=== PATIENT | female | born 1995 | race Two or more races ===

== ENCOUNTER 2021-01-27 10:03 | Inpatient (IN) | payer OTHER ==
[~2021-01-27] VITALS: Ht 168.9 cm; Wt 83.5 kg
[2021-01-27] MEDS ORDERED: PRENATAL TABLE1 EAC1 PO (10:21)
[2021-01-27] MEDS ORDERED: PEPCID AC20 MG PO (10:21)
== END 2021-01-29 14:26 | disposition home or self-care (01) | DRG 807 ==
LOC: OB/GYN 10:03 → LDR 10:03 → OB/GYN 18:10
PROVIDERS: ADMIT Obstetrics & Gynecology Obstetrics; ATTEND Obstetrics & Gynecology Obstetrics
PROC: 10E0XZZ Delivery of Products of Conception, External Approach (ICD-10-PCS; principal; 2021-01-27)
PROC: 10907ZC Drainage of Amniotic Fluid, Therapeutic from Products of Conception, Via Natural or Artificial Opening (ICD-10-PCS; 2021-01-27)
PROC: 4A1HXFZ Monitoring of Products of Conception, Cardiac Rhythm, External Approach (ICD-10-PCS; 2021-01-27)
DX: O80 Encounter for full-term uncomplicated delivery (principal); Z37.0 Single live birth; Z3A.37 37 weeks gestation of pregnancy

== ENCOUNTER 2023-08-14 10:04 | Outpatient (CLI) | payer OTHER ==
[~2023-08-14 10:04] MED LIST: PEPCID AC20 MG PO; PRENATAL TABLE1 EAC1 PO
== END 2023-08-14 10:05 | disposition home or self-care (01) ==
LOC: PRENATAL 10:04
PROVIDERS: ATTEND Obstetrics & Gynecology Maternal & Fetal Medicine
DX: O35.9XX0 Maternal care for (suspected) fetal abnormality and damage, unspecified, not applicable or unspecified (principal); O35.3XX0 Maternal care for (suspected) damage to fetus from viral disease in mother, not applicable or unspecified; O44.00 Complete placenta previa NOS or without hemorrhage, unspecified trimester; Z3A.27 27 weeks gestation of pregnancy

== ENCOUNTER 2023-10-19 17:40 | Inpatient (IN) | payer OTHER ==
[~2023-10-19] VITALS: Ht 170.2 cm; Wt 85.3 kg
[2023-10-19 16:46] VITALS: BP 122/72
[2023-10-19] MEDS ORDERED: RINGERS SOLUTION,LACTATED 1,000 ML IV SCH (18:00)
[2023-10-19] MEDS ORDERED: BETAMETHASONE ACETATE,SOD PHOS 30 MG/5 ML ML ONE (18:00)
[2023-10-19] MEDS ORDERED: CEFAZOLIN SODIUM 1,000 MG VIAL IV SCH (18:00)
[2023-10-19] MEDS ORDERED: CEFAZOLIN SODIUM 1,000 MG VIAL ONE (18:02)
[2023-10-19] MEDS ORDERED: BETAMETHASONE ACETATE,SOD PHOS 30 MG/5 ML ML IU NR (18:15)
[2023-10-19 18:53] LABS: HEMATOCRIT 28.6 % (36.0-45.00); HEMOGLOBIN 9.8 g/dL (12.0-15.00); MEAN CELL VOLUME 91.8 fL (80.00-100.00); MEAN CORPUSCULAR HEMOGLOBIN 31.3 pg (27.00-32.0); MEAN CORPUSCULAR HGB CONC 34.1 g/dl (32.0-36.0); PLATELET COUNT 232 K/uL (150-450); RED BLOOD COUNT 3.12 M/uL (4.00-6.00); RED CELL DISTRIBUTION WIDTH 14.1 % (11.5-14.5)
[2023-10-19 18:54] LABS: PH,URINE 6.5 (5.0-8.0); URINE APPEARANCE Cloudy; URINE BILIRRUBIN Negative (NEGATIVE); URINE BLOOD Negative; URINE COLOR Yellow; URINE GLUCOSE Negative (NEGATIVE); URINE KETONE Negative (NEGATIVE); URINE LEUKOCYTE Moderate; URINE NITRATE Negative; URINE PROTEIN 30 (NEGATIVE); URINE UROBILINOGEN 0.2 E.U./dl
[2023-10-19 18:58] LABS: URINE BACTERIA 3321.1 uL (0.0-1933); URINE EPITHELIAL CELLS 108.8 uL (0.0-38.8); URINE RBC 3.2 uL (0.0-20.8); URINE WBC 187.3 uL (0.0-23.2)
[2023-10-19 19:12] LABS: INR 0.95; PARTIAL THROMBOPLASTIN TIME 30.5 SECONDS (22.0-34.0); PROTHROMBIN TIME 10.4 SECONDS (9.0-11.5)
[2023-10-19] MEDS ORDERED: SOD FERRIC GLUC COMPLX/SUCROSE 62.5 MG/5 ML AMPUL IV NR (19:15)
[2023-10-19 19:19] LABS: URINE CAST 0.15 uL (0.0-1.40); URINE YEAST FEW /hpf
[2023-10-19 19:37] VITALS: BP 106/56
[2023-10-19] MEDS ORDERED: SOD FERRIC GLUC COMPLX/SUCROSE 62.5 MG/5 ML AMPUL IV ONE (20:13)
[2023-10-19 23:30] VITALS: BP 115/65
[2023-10-20 03:17] VITALS: BP 121/66
[2023-10-20 06:30] VITALS: BP 100/54; O2SAT 97
[2023-10-20 11:58] VITALS: BP 115/60
[2023-10-20] MEDS ORDERED: FAMOTIDINE/PF 20 MG/2 ML VIAL IV PUSH PRN ×2 (12:15→15:15)
[2023-10-20 15:22] VITALS: BP 109/64
[2023-10-20] MEDS ORDERED: TERBUTALINE SULFATE 1 MG/ML AMPUL ONE (17:46)
[2023-10-20] MEDS ORDERED: TERBUTALINE SULFATE 1 MG/ML AMPUL SUBCUTANEO SCH (18:00)
[2023-10-20] MEDS ORDERED: BETAMETHASONE ACETATE,SOD PHOS 30 MG/5 ML ML ONE (18:04)
[2023-10-20] MEDS ORDERED: BETAMETHASONE ACETATE,SOD PHOS 30 MG/5 ML ML IU SCH (18:15)
[2023-10-20 20:45] VITALS: BP 90/50
[2023-10-20] MEDS ORDERED: FAMOTIDINE/PF 20 MG/2 ML VIAL IV PUSH SCH (21:00)
[2023-10-20 23:33] VITALS: BP 126/66
[2023-10-21 03:42] VITALS: BP 103/51
[2023-10-21 07:30] VITALS: BP 124/61
[2023-10-21] MEDS ORDERED: NIFEDIPINE 30 MG TAB.SA.OSM PO SCH (09:00)
[2023-10-21 11:22] VITALS: BP 92/51
[2023-10-21 14:49] VITALS: BP 90/52
[2023-10-21 18:38] VITALS: BP 105/65
== END 2023-10-21 18:40 | disposition home or self-care (01) | DRG 831 ==
LOC: OBS/DEL 17:40 → LDR 10-20 17:07 → OBS/DEL 10-20 17:07 → LDR 10-21 18:40
PROVIDERS: ADMIT Obstetrics & Gynecology Obstetrics; ATTEND Obstetrics & Gynecology Obstetrics
PROC: 4A1HXCZ Monitoring of Products of Conception, Cardiac Rate, External Approach (ICD-10-PCS; principal; 2023-10-20)
PROC: BY4FZZZ Ultrasonography of Third Trimester, Single Fetus (ICD-10-PCS; 2023-10-20)
PROC: BU4CZZZ Ultrasonography of Uterus and Ovaries (ICD-10-PCS; 2023-10-20)
DX: O23.43 Unspecified infection of urinary tract in pregnancy, third trimester (principal); O60.03 Preterm labor without delivery, third trimester; O26.843 Uterine size-date discrepancy, third trimester; O36.8130 Decreased fetal movements, third trimester, not applicable or unspecified; Z3A.32 32 weeks gestation of pregnancy; Z20.822 Contact with and (suspected) exposure to COVID-19

== ENCOUNTER 2023-12-08 22:09 | Inpatient (IN) | payer OTHER ==
[~2023-12-08] VITALS: Ht 170.2 cm; Wt 86.6 kg
[2023-12-08 21:42] VITALS: BP 127/71
[2023-12-08] MEDS ORDERED: AMPICILLIN SODIUM 2,000 MG VIAL IV SCH (22:30)
[2023-12-08] MEDS ORDERED: PROMETHAZINE HCL 25 MG/ML AMPUL IV ONE (23:00)
[2023-12-08] MEDS ORDERED: MEPERIDINE HCL/PF 50 MG/ML VIAL IV ONE (23:00)
[2023-12-08 23:14] LABS: HEMATOCRIT 32.2 % (36.0-45.00); MEAN CELL VOLUME 91.7 fL (80.00-100.00); MEAN CORPUSCULAR HGB CONC 33.7 g/dl (32.0-36.0); PLATELET COUNT 229 K/uL (150-450); RED BLOOD COUNT 3.51 M/uL (4.00-6.00); RED CELL DISTRIBUTION WIDTH 15.5 % (11.5-14.5)
[2023-12-08 23:17] VITALS: BP 135/67
[2023-12-08 23:22] LABS: URINE APPEARANCE Clear; URINE BILIRRUBIN Negative (NEGATIVE); URINE BLOOD Negative; URINE COLOR Yellow; URINE GLUCOSE Negative (NEGATIVE); URINE KETONE Negative (NEGATIVE); URINE LEUKOCYTE Small; URINE NITRATE Negative; URINE PROTEIN Negative (NEGATIVE); URINE UROBILINOGEN 0.2 E.U./dl
[2023-12-08 23:25] LABS: URINE BACTERIA 875.6 uL (0.0-1933); URINE EPITHELIAL CELLS 138.8 uL (0.0-38.8); URINE WBC 74.3 uL (0.0-23.2)
[2023-12-08 23:39] LABS: HEMOGLOBIN 10.8 g/dL (12.0-15.00); MEAN CORPUSCULAR HEMOGLOBIN 30.7 pg (27.00-32.0)
[2023-12-08 23:42] LABS: INR < 0.93; PARTIAL THROMBOPLASTIN TIME 28.8 SECONDS (22.0-34.0); PROTHROMBIN TIME 9.9 SECONDS (9.0-11.5)
[2023-12-08 23:47] LABS: ALBUMIN 2.8 gm/dL (3.4-5.0); BILIRUBIN TOTAL 0.31 mg/dL (0.3-1.2); CALCIUM 9.2 mg/dL (8.5-10.1); CREATININE SERUM 0.65 mg/dL (0.55-1.02); GFR 110.18; GLOBULINA 3.8 G/DL (2.4-3.5); POTASSIUM 4.33 mEq/L (3.5-5.1); TOTAL PROTEIN 6.6 gm/dL (6.4-8.2)
[2023-12-09 00:21] LABS: URINE CAST 0.45 uL (0.0-1.40); URINE RBC 0.9 uL (0.0-20.8)
[2023-12-09 00:23] LABS: URINE YEAST FEW /hpf
[2023-12-09 02:07] VITALS: BP 136/63
[2023-12-09 02:15] VITALS: BP 131/63
[2023-12-09] MEDS ORDERED: OXYTOCIN 1,000 ML IV SCH (02:15)
[2023-12-09] MEDS ORDERED: CHLORHEXIDINE GLUCONATE 120 ML BOTTLE TOP SCH (02:15)
[2023-12-09] MEDS ORDERED: IBUprofen 400 MG TABLET PO PRN (02:15)
[2023-12-09 02:30] VITALS: BP 123/65
[2023-12-09 03:55] VITALS: BP 130/71
[2023-12-09 08:23] VITALS: BP 122/78
[2023-12-09] MEDS ORDERED: DOCUSATE SODIUM 100MG CAP PO SCH (09:00)
[2023-12-09 15:32] VITALS: BP 123/61
[2023-12-10 00:04] VITALS: BP 115/68
[2023-12-10 08:53] VITALS: BP 137/84
[2023-12-10 15:45] VITALS: BP 136/82
[2023-12-10 23:51] VITALS: BP 108/66
[2023-12-11 05:24] VITALS: BP 101/62
[2023-12-11 08:06] VITALS: BP 112/67
[2023-12-11 16:00] VITALS: BP 109/65
== END 2023-12-11 16:05 | disposition home or self-care (01) | DRG 807 ==
LOC: LDR 22:09 → OB/GYN 22:09
PROVIDERS: ADMIT Obstetrics & Gynecology Obstetrics; ATTEND Obstetrics & Gynecology Obstetrics
PROC: 4A1HXCZ Monitoring of Products of Conception, Cardiac Rate, External Approach (ICD-10-PCS; 2023-12-08)
PROC: 10E0XZZ Delivery of Products of Conception, External Approach (ICD-10-PCS; principal; 2023-12-09)
DX: O80 Encounter for full-term uncomplicated delivery (principal); Z37.0 Single live birth; Z3A.38 38 weeks gestation of pregnancy; Z20.822 Contact with and (suspected) exposure to COVID-19